=== PATIENT | female | born 1960 | race Caucasian/White ===

== ENCOUNTER 2021-10-20 09:48 | Emergency (ER) | payer MEDICARE ==
[2021-10-20 10:20] LABS: HEMOGLOBIN 14.1 gm/dl (12.3-15.3); RED BLOOD COUNT 4.33 M/UL (4.00-5.10); WHITE BLOOD COUNT 10.7 K/UL (4.5-11.0)
[2021-10-20 11:10] LABS: BUN/CREATININE RATIO 15 (0-10)
[2021-10-20] MEDS ORDERED: ZOFRAN ODT 4 MG4 MG PO (13:28)
== END 2021-10-20 13:38 | disposition home or self-care (01) ==
LOC: ER1 09:48
PROVIDERS: Family Medicine
DX: R73.9 Hyperglycemia, unspecified (principal); E87.6 Hypokalemia; R55 Syncope and collapse; R11.0 Nausea; T36.1X5A Adverse effect of cephalosporins and other beta-lactam antibiotics, initial encounter; I10 Essential (primary) hypertension
CPT/HCPCS: 71045; 80053; 82550; 82553; 82962; 83690; 83880; 84439; 84443; 84484; 85025; 93005; 96374; 99284; J2405

== ENCOUNTER → 2021-10-30 | Outpatient (CLI) | payer MEDICARE ==
[~2021-10-30] MED LIST: ZOFRAN ODT 4 MG4 MG PO
== END ==
LOC: KOH-I 11:00
DX: R56.9 Unspecified convulsions (principal)
CPT/HCPCS: 70450